=== PATIENT | female | born 1945 | race Caucasian/White ===

== ENCOUNTER → 2018-05-05 10:19 | Outpatient (BNVA) | payer MEDICARE, OTHER, SELFPAY | PROVIDERS: PCP Internal Medicine; Visit Provider Orthopaedic Surgery | DX: Z47.1 Aftercare following joint replacement surgery (principal); Z96.653 Presence of artificial knee joint, bilateral | CPT/HCPCS: 99211; 99213 ==

== ENCOUNTER 2023-01-23 08:15 | Outpatient (CLI) | payer MEDICARE, SELFPAY ==
--- NOTE | 2023-01-23 08:15 | RT.EKG_ITS ---
APPROVED REPORT Exam: Resting ECG Reason for Exam: ASCVD Patient Location: O HR:61 bpm ECG Measurements Heart Rate 61 AXIS UT 156 P 65 QRSd 89 QRS -28 QT 418 T 31 QTc 421 Conclusion Sinus rhythm...normal P axis, V-rate 50- 99 Atrial premature complexes...SV complexes w/ short R-R intvls Low voltage, precordial leads...precordial leads <1.0mV
== END 2023-01-23 08:16 | disposition home or self-care (01) ==
LOC: DI.CARD 08:16
PROVIDERS: PCP Internal Medicine; Visit Provider Internal Medicine Cardiovascular Disease
DX: I25.10 Atherosclerotic heart disease of native coronary artery without angina pectoris (principal)
CPT/HCPCS: 93010

== ENCOUNTER → 2023-01-23 12:53 | Outpatient (BNVA) | payer MEDICARE, SELFPAY | PROVIDERS: PCP Internal Medicine; Referring Provider Internal Medicine; Visit Provider Internal Medicine Cardiovascular Disease | DX: I87.2 Venous insufficiency (chronic) (peripheral) (principal); R60.0 Localized edema | CPT/HCPCS: 93005; 99202 ==